=== PATIENT | male | born 1960 | race Caucasian/White ===

== ENCOUNTER 2018-04-22 09:46 | Day surgery (SDC) | payer OTHER ==
--- NOTE | 2018-04-22 10:21 | PDANEPAE ---
ANE History of Present Illness Colonoscopy ANE Past Medical History - Cardiovascular History Hx Hypertension: Yes Hx Arrhythmias: No Hx Chest Pain: No Hx Coronary Artery / Peripheral Vascular Disease: No Hx CHF / Valvular Disease: No Hx Palpitations: No Cardiovascular History Comment: diastolic dysfunction noted on prior echo - Pulmonary History Hx COPD: No Hx Asthma/Reactive Airway Disease: No Hx Recent Upper Respiratory Infection: No Hx Oxygen in Use at Home: No Hx Sleep Apnea: No Pulmonary History Comment: Negative sleep study - Neurologic History Hx Cerebrovascular Accident: No Hx Seizures: No Hx Dementia: No Neurologic History Comment: R diaphragmatic dysfunction dx in 01/03 - Endocrine History Hx Diabetes: No Hypothyroid: No Hyperthyroid: No Obesity: no - Renal History Hx Renal Disorders: Yes Renal History Comment: 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, s/p renal transplant - Liver History Hx Hepatic Disorders: No - Neurological & Psychiatric Hx Hx Neurological and Psychiatric Disorders: No Neurological / Psychiatric History Comment: surgery related anxiety - GI History GERD: severe Hx Gastrointestinal Disorders: Yes Gastrointestinal History Comment: Ulcerative colitis, diverticulitis, celiac disease - Chronic Pain History Chronic Pain: Yes (abdominal pain) - Surgical History Prior Surgeries: S/p renal tx with postop R diaphragmatic dysfunction, now improved ANE Review of Systems Review of Systems: - Exercise capacity METS (RN): 4 METS ANE Patient History - Allergies Allergies/Adverse Reactions: No Known Allergies Allergy (Unverified 03/05/11 20:22) - Home Medications Home Medications: Labetalol HCl 100 mg PO BID 04/22/18 [Last Taken 04/22/18 07:30] Mycophenolic Acid 720 mg PO BID 04/22/18 [Last Taken 04/22/18 07:20] Omeprazole 20 mg PO DAILY 04/22/18 [Last Taken 04/22/18 07:30] Vit D3-Vit K/Berberine/Hops 1,000 units PO DAILY 04/22/18 [Last Taken 04/21/18] - Anes Hx Hx Anesthesia Complications (with details): Pt. reports he thinks diaphragmatic dysfunction may be due to anesthesia - Smoking Hx Smoking Status: Former smoker Marijuana use: No - Alcohol Use Alcohol Use: None - Family Anes Hx Family Anes Hx: none ANE Physical Exam - Airway Neck exam: FROM Mallampati Score: Class 2 Mouth exam: normal dental/mouth exam - Pulmonary Pulmonary: clear to auscultation - Cardiovascular Cardiovascular: regular rate and rhythym - ASA Status ASA Status: III ANE Anesthesia Plan Anesthesia Plan: GA with mask
[2018-04-22] MEDS ORDERED: MIDAZOLAM 2 MG/2 ML VIAL IVP ONE (10:33)
[2018-04-22] MEDS ORDERED: PROPOFOL 200 MG/20 ML VIAL ONE ×2 (10:36→11:43)
[2018-04-22] MEDS ORDERED: fentaNYL 100 MCG/2 ML INJ ONE (10:36)
[2018-04-22] MEDS ORDERED: MIDAZOLAM 2 MG/2 ML VIAL ONE (11:15)
--- NOTE | 2018-04-22 11:23 | PDGENHP ---
History & Physical Chief Complaint: diarrhea, hx of colitis, crohns History of Present Illness: PCKD, diarrhea and kidney transplant Relevant Physical Exam: lungs clear. cor normal s 1 s 2
--- NOTE | 2018-04-22 11:42 | GIREPORT ---
[facility] Surgical Services - Endoscopy Department Patient Name: Marcellus Espinoza Procedure Date: 04/22/2018 11:00 AM Patient Type: Outpatient Attending MD/ ER Physician: Teddy Estrada MD Procedure: Upper GI endoscopy Indications: Celiac disease, Diarrhea, PCKD. Immunosuppressed, s/p kidney transplant Providers: Teddy Estrada MD Medicines: Propofol per Anesthesia Complications: No immediate complications. Description of Procedure: After obtaining informed consent, the endoscope was passed under direct vision. Throughout the procedure, the patient's blood pressure, pulse, and oxygen saturations were monitored continuously. The Endoscope was intro duced through the mouth, and advanced to the second part of duodenum. The up er GI endoscopy was accomplished without difficulty. The patient tolerated th e procedure well. Findings: Diffuse, white plaques were found in the entire esophagus. Biopsies wer e taken with a cold forceps for histology. Diffuse mild inflammation characterized by congestion (edema) and eryth arabella was found in the gastric antrum. Biopsies were taken with a cold forcep s for histology. A few 4 to 5 mm sessile polyps with no stigmata of recent bleeding were found in the gastric body. Biopsies were taken with a cold forceps for histology. The examined duodenum was normal. Biopsies for histology were taken wit h a cold forceps for evaluation of celiac disease. Estimated Blood Loss: Estimated blood loss: none. Post Op Diagnosis: - Esophageal plaques were found, consistent with candidiasis. Biopsied. - Chronic gastritis. Biopsied. - A few gastric polyps. Biopsied. - Normal examined duodenum. Biopsied. Recommendation: - Await pathology results. - Diflucan (fluconazole) 100 mg PO daily for 2 weeks. - Thank you for allowing me to participate in the care of your patient. Attending Participation: I personally performed the entire procedure. Teddy Estrada MD Teddy Estrada MD 04/22/2018 11:42:18 AM This report has been signed electronicallyStcesar Estrada MD Number of Addenda: 0 Note Initiated On: 04/22/2018 11:00 AM [email or web address]}
[2018-04-22] MEDS ORDERED: fentaNYL 100 MCG/2 ML INJ IVP PRN (11:49)
[2018-04-22] MEDS ORDERED: ONDANSETRON 4 MG/2 ML VIAL IVP PRN (11:49)
[2018-04-22] MEDS ORDERED: NALOXONE HCL 0.4 MG/ML INJ IVP PRN (11:49)
--- NOTE | 2018-04-22 12:29 | POSTANESTH ---
Post Anesthetic Evaluation Cardiovascular Status: Similar to Pre-Op Cond Respiratory Status: Normal, Stable Level of Consciousness/Mental Status: Can Participate in Eval Pain Control: Adequate, Prn Tx Ordered Nausea/Vomiting Control: Adequate, Prn Tx Ordered Complications Possibly Related to Anesthesia: None Noted
--- NOTE | 2018-04-22 12:30 | GIREPORT ---
[facility] Surgical [facility] - Endoscopy Department Patient Name: Marcellus Espinoza Procedure Date: 04/22/2018 11:32 AM Patient Type: Outpatient Attending MD/ ER Physician: Teddy Estrada MD Procedure: Colonoscopy Indications: Clinically significant diarrhea of unexplained origin, History of UC. R ecent episode of diverticulitis. Crampy abdominal pain. PCKD on immunosuppressants. Having diarrhea and weight loss. Providers: Teddy Estrada MD Medicines: Propofol per Anesthesia Complications: No immediate complications. Description of Procedure: After obtaining informed consent, the scope was passed under direct vis ion. Throughout the procedure, the patient's blood pressure, pulse, and oxyg en saturations were monitored continuously. The Colonoscope with irrigatio n channel was introduced through the anus with the intention of advancing to the cecum. The scope was advanced to the sigmoid colon before the proce dure was aborted. Medications were given. The Colonoscope was introduced thr ough the and advanced to. The colonoscopy was performed without difficulty. The patient tolerated the procedure well. The quality of the bowel preparat ion was good. The rectum was photographed. Findings: Multiple small and large-mouthed diverticula were found in the sigmoid colon. Purulent discharge was seen in association with the diverticular opening, suspicious of diverticulitis. A patchy area of moderately erythematous mucosa was found in the sigmoi d colon. Biopsies were taken with a cold forceps for histology. The rectum appeared normal. Estimated Blood Loss: Estimated blood loss: none. Post Op Diagnosis: - Moderate diverticulosis in the sigmoid colon. Purulent discharge was seen in association with the diverticular opening, suspicious of diverticuli tis. - Erythematous mucosa in the sigmoid colon. Biopsied. - The rectum is normal. Recommendation: - Patient has a contact number available for emergencies. The signs and symptoms of potential delayed complications were discussed with the pat ient. Return to normal activities tomorrow. Written discharge instructions we re provided to the patient. - Low fiber diet and gluten free diet. - Continue present medications. - Continue Augmentin 875 mg BID x 14 days. - Imodium 1 tablet PO BID PRN. - Repeat colonoscopy in 8 weeks because the examination was incomplete. - Return to GI office in 2 weeks. - Thank you for allowing me to participate in the care of your patient. Attending Participation: I personally performed the entire procedure. Teddy Estrada MD Teddy Estrada MD 04/22/2018 12:29:27 PM This report has been signed electronicallyStcesar Estrada MD Number of Addenda: 0 Note Initiated On: 04/22/2018 11:32 AM Total Procedure Duration Time 0 hours 8 minutes 17 seconds [email or web address]}
[2018-04-22 13:47] VITALS: BP 162/95
== END 2018-04-22 13:57 | disposition home or self-care (01) ==
LOC: FSGY 09:46
PROVIDERS: ATTEND Internal Medicine Gastroenterology
PROC: 0DBN8ZX Excision of Sigmoid Colon, Via Natural or Artificial Opening Endoscopic, Diagnostic (ICD-10-PCS; principal; 2018-04-22 11:00)
PROC: 0DB98ZX Excision of Duodenum, Via Natural or Artificial Opening Endoscopic, Diagnostic (ICD-10-PCS; 2018-04-22 11:00)
PROC: 0DB68ZX Excision of Stomach, Via Natural or Artificial Opening Endoscopic, Diagnostic (ICD-10-PCS; 2018-04-22 11:00)
PROC: 0DB58ZX Excision of Esophagus, Via Natural or Artificial Opening Endoscopic, Diagnostic (ICD-10-PCS; 2018-04-22 11:00)
DX: K31.7 Polyp of stomach and duodenum (principal); B37.81 Candidal esophagitis; R19.7 Diarrhea, unspecified; G47.33 Obstructive sleep apnea (adult) (pediatric); J98.6 Disorders of diaphragm; J18.9 Pneumonia, unspecified organism; Z94.0 Kidney transplant status
CPT/HCPCS: 82784-90; 83516-90; J2250; J2704; J3010

== ENCOUNTER 2018-06-08 08:27 | Day surgery (SDC) | payer OTHER ==
[2018-06-08] MEDS ORDERED: LR 1,000 ML IV ONE (08:34)
[2018-06-08] MEDS ORDERED: LIDOCAINE 1% 2 ML INJ ID PRN (08:34)
--- NOTE | 2018-06-08 09:48 | PDGENHP ---
History & Physical Chief Complaint: Diarrhea, ? hx of UC History of Present Illness: Celiac disease and ESKD s/p transplant. Cardiorespiratory Assessment: Cardiac: normal S1 S2. Lungs Clear
[2018-06-08] MEDS ORDERED: NS 1,000 ML IV SCH (10:00)
--- NOTE | 2018-06-08 10:03 | PDANEPAE ---
ANE History of Present Illness colonoscopy ANE Past Medical History - Cardiovascular History Hx Hypertension: Yes Hx Arrhythmias: No Hx Chest Pain: No Hx Coronary Artery / Peripheral Vascular Disease: No Hx CHF / Valvular Disease: No Hx Palpitations: No Cardiovascular History Comment: diastolic dysfunction noted on prior echo - Pulmonary History Hx COPD: No Hx Asthma/Reactive Airway Disease: No Hx Recent Upper Respiratory Infection: No Hx Oxygen in Use at Home: No Hx Sleep Apnea: No Sleep Apnea Screening Result - Last Documented: Positive Pulmonary History Comment: Negative sleep study. EBONI triggers positive. 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 Tendon repairs bilat ankles, mid 90's. Renal tx (12/2015) ANE Review of Systems Review of Systems: - Exercise capacity METS (RN): 4 METS ANE Patient History - Allergies Allergies/Adverse Reactions: codeine Allergy (Verified 05/25/18 13:54) metoclopramide [From Reglan] Allergy (Verified 05/25/18 13:54) - Home Medications Home medications: home medication list seen and reviewed Home Medications: Belatacept 04/22/18 [Last Taken 3 Weeks Ago ~05/18/18] Labetalol HCl 100 mg PO BID 04/22/18 [Last Taken 06/08/18 07:00] Mycophenolic Acid 720 mg PO BID 04/22/18 [Last Taken 06/08/18 07:00] Omeprazole 20 mg PO DAILY 04/22/18 [Last Taken 06/08/18 07:00] Vit D3-Vit K/Berberine/Hops 1,000 units PO DAILY 04/22/18 [Last Taken 06/08/18 07:00] Probiotic 05/25/18 [Last Taken 06/08/18 07:00] - NPO status NPO Status: no food or drink >8 hours NPO Since - Liquids (Date): 06/08/18 NPO Since - Liquids (Time): 07:00 (meds with sips) NPO Since - Solids (Date): 06/06/18 NPO Since - Solids (Time): 08:00 - Anes Hx Anes Hx: no prior problems - Smoking Hx Smoking Status: Former smoker - Alcohol Use Alcohol Use: None - Family Anes Hx Family Anes Hx: none Family Hx Anesthesia Complications: none ANE Labs/Vital Signs - Vital Signs Blood Pressure: 139/87 Heart Rate: 73 Respiratory Rate: 24 O2 Sat (%): 94 Height: 187.96 cm Weight: 79.379 kg ANE Physical Exam - Airway Neck exam: FROM Mallampati Score: Class 2 Mouth exam: normal dental/mouth exam (oral thrush) - Pulmonary Pulmonary: no respiratory distress - Cardiovascular Cardiovascular: regular rate and rhythym - ASA Status ASA Status: III ANE Anesthesia Plan Anesthesia Plan: GA with mask Total IV Anesthesia: Yes
[2018-06-08] MEDS ORDERED: PROPOFOL 200 MG/20 ML VIAL ONE ×3 (10:04→10:37)
[2018-06-08] MEDS ORDERED: LIDOCAINE 2% 100 MG/5 ML SYR ONE (10:30)
[2018-06-08] MEDS ORDERED: fentaNYL 100 MCG/2 ML INJ IVP PRN (11:21)
[2018-06-08] MEDS ORDERED: ONDANSETRON 4 MG/2 ML VIAL IVP PRN (11:21)
[2018-06-08] MEDS ORDERED: LR 500 ML IV PRN (11:21)
[2018-06-08] MEDS ORDERED: PHENYLEPHRINE HCL 100 MCG/ML SYR IVP PRN (11:21)
[2018-06-08] MEDS ORDERED: ACETAMINOPHEN 500 MG TAB PO PRN (11:21)
[2018-06-08] MEDS ORDERED: NALOXONE HCL 0.4 MG/ML INJ IVP PRN (11:21)
[2018-06-08] MEDS ORDERED: DEXAMETHASONE 4 MG/ML VIAL IVP PRN (11:21)
[2018-06-08] MEDS ORDERED: ALBUTEROL 3 ML DEYVIAL IH PRN (11:21)
--- NOTE | 2018-06-08 11:57 | POSTANESTH ---
Post Anesthetic Evaluation Cardiovascular Status: Normal, Stable Respiratory Status: Normal, Stable Level of Consciousness/Mental Status: Can Participate in Eval Pain Control: Adequate, Prn Tx Ordered Nausea/Vomiting Control: Adequate, Prn Tx Ordered Complications Possibly Related to Anesthesia: None Noted
[2018-06-08 12:14] VITALS: BP 127/92
--- NOTE | 2018-06-16 11:08 | GIREPORT ---
[facility] Surgical Services - Endoscopy Department Patient Name: Marcellus Espinoza Procedure Date: 06/08/2018 9:48 AM Patient Type: Outpatient Attending MD/ ER Physician: Teddy Estrada MD Procedure: Colonoscopy Indications: Chronic diarrhea, Clinically significant diarrhea of unexplained origin , Personal history of ulcerative colitis, Recent history of diverticuliti s. History of PCKD, s/p renal transplant on Cellcept and prednisone. Providers: Teddy Estrada MD Referring MD: Kush Lozano, Nephrology, Soniaailin [facility] Calder[facility], [facility] Medicines: General Anesthesia Complications: No immediate complications. Description of Procedure: After obtaining informed consent, the scope was passed under direct vis ion. Throughout the procedure, the patient's blood pressure, pulse, and oxyg en saturations were monitored continuously. The Colonoscope was introduced through the anus and advanced to the terminal ileum. The colonoscopy wa s performed with difficulty due to multiple diverticula in the colon. Successful completion of the procedure was aided by withdrawing the sco pe and replacing with the pediatric endoscope. The patient tolerated the procedure well. The quality of the bowel preparation was good. The term inal ileum, ileocecal valve, appendiceal orifice, and rectum were photograph ed. Moderate Sedation: GA Findings: Multiple small and large-mouthed diverticula were found in the sigmoid colon. Inflammation characterized by congestion (edema), erythema and shallow ulcerations was found in a continuous and circumferential pattern from the rectum to the cecum. No sites were spared. This was moderate in severit y. Biopsies were taken with a cold forceps for histology. Biopsies obtaine d right colon, left colon and rectum. The terminal ileum appeared normal. Biopsies were taken with a cold for ceps for histology. Internal hemorrhoids were found. The hemorrhoids were large. Estimated Blood Loss: Estimated blood loss: none. Post Op Diagnosis: - Diverticulosis in the sigmoid colon. - Pancolitis ulcerative colitis. Inflammation was found from the rectum to the cecum. This was moderate in severity. Biopsied. - The examined portion of the ileum was normal. Biopsied. - Internal hemorrhoids. Recommendation: - Patient has a contact number available for emergencies. The signs and symptoms of potential delayed complications were discussed with the pat ient. Return to normal activities tomorrow. Written discharge instructions we re provided to the patient. - Resume previous diet. - Continue present medications. - Await pathology results. - Repeat colonoscopy is recommended for surveillance. The colonoscopy d ate will be determined after pathology results from today's exam become available for review. - Return to GI clinic as previously scheduled. - Use Lialda 1.2 gm at 4 tabs PO daily. - Continue Prednisone taper - Dosing of Cellcept per transplant team - Await biopsy results, will need to discuss with transplant team regar ding additional therapy, treatment options for UC. (ie: biologics, imunomodulators) - Patient with oral thrush on today's exam, will treat with Nystatin sw candido and swallow, QID x 14 days - Thank you for allowing me to participate in the care of your patient. Attending Participation: I personally performed the entire procedure. Teddy Estrada MD Teddy Estrada MD 06/08/2018 11:37:42 AM This report has been signed electronicallyTeddy Estrada MD Number of Addenda: 0 Note Initiated On: 06/08/2018 9:48 AM Total Procedure Duration Time 0 hours 33 minutes 6 seconds [email or web address]
== END 2018-06-08 12:30 | disposition home or self-care (01) ==
LOC: FSGY 08:27
PROVIDERS: ATTEND Internal Medicine Gastroenterology
DX: K51.90 Ulcerative colitis, unspecified, without complications (principal); K57.30 Diverticulosis of large intestine without perforation or abscess without bleeding; I10 Essential (primary) hypertension
CPT/HCPCS: 88323-90; J2001; J2704